=== PATIENT | female | born 1990 | race Hispanic/Latino ===

== ENCOUNTER → 2021-12-25 14:44 | Outpatient (CLI) | payer OTHER, SELFPAY ==
--- NOTE | 2021-12-25 14:49 | DI.RAD.S_ITS ---
PROCEDURE: XR HAND RT MIN 3V INDICATIONS: bilateral hand pain TECHNIQUE: 3 views of the hand(s) acquired. COMPARISON: [facility], CR, XR HAND LT MIN 3V, 12/25/2021, 14:51. FINDINGS: Bones: No fractures or dislocations. Carpal bones are normally aligned. No suspicious bony lesions. Soft tissues: No suspicious soft tissue calcifications. IMPRESSION: Joints are well maintained and no inflammatory arthritic changes. Dictated by: Robbi GARDNER Interpreted: Erinn Mejía MD on 12/25/2021 at 15:38 Transcribed by: ACOSTA on 12/25/2021 at 15:38 Approved by: Erinn Mejía M.D. on 12/25/2021 at 16:38
--- NOTE | 2021-12-25 14:49 | DI.RAD.S_ITS ---
PROCEDURE: XR HAND LT MIN 3V INDICATIONS: bilateral hand pain TECHNIQUE: 3 views of the hand(s) acquired. COMPARISON: None. FINDINGS: Bones: No fractures or dislocations. Carpal bones are normally aligned. No suspicious bony lesions. Soft tissues: No suspicious soft tissue calcifications. IMPRESSION: Joints are well maintained and no inflammatory arthritic changes. Dictated by: Robbi GARDNER Interpreted: Erinn Mejía MD on 12/25/2021 at 15:38 Transcribed by: ACOSTA on 12/25/2021 at 15:38 Approved by: Erinn Mejía M.D. on 12/25/2021 at 16:37
== END ==
PROVIDERS: PCP Family Medicine; Referring Provider Family Medicine; Visit Provider Family Medicine
DX: M79.641 Pain in right hand (principal); M79.642 Pain in left hand
CPT/HCPCS: 73130